=== PATIENT | female | born 2000 | race Caucasian/White ===

== ENCOUNTER 2019-05-09 19:54 | Emergency (ER) | payer BC ==
[~2019-05-09] VITALS: Ht 170.2 cm; Wt 59.0 kg
[2019-05-09 20:05] VITALS: BP 123/82
--- NOTE | 2019-05-09 20:05 | NUR ---
ED Nurse Note: Pt arrived ED from home, c/o Flu like symptom on and off for a week. Pt is A/O X 4. Vital signs stable at this time, waiting for orders.
--- NOTE | 2019-05-09 20:10 | Emergency Room Report ---
History of Present Illness General Chief Complaint: Flu Like Symptoms Source: Patient Present Illness HPI 19-year-old female with no significant past medical history here complaining of 3 weeks of cough and congestion. Patient reports that her symptoms started with sore throat and now she has green mucus and a yellow phlegm. Denies fever and chills, shortness of breath, wheezing, abdominal pain nausea vomiting. Patient reports that she recently moved to [place] and was currently in school. Has been taking qiaj-bng-rjhhujr cough syrups with minimal relief. Denies chest pain, palpitation, shortness of breath, and other associated symptoms. Patient is not a tobacco smoker Allergies: Coded Allergies: No Known Allergies (Unverified , 05/09/19) Patient History Past Medical History: see triage record Past Surgical History: unable to obtain Pertinent Family History: none Last Menstrual Period: 05/02/19 Now: No : 0 Para: 0 Immunizations: UTD Reviewed Nursing Documentation: PMH: Agreed; PSxH: Agreed Nursing Documentation-PMH Past Medical History: No Stated History Review of Systems All Other Systems: negative except mentioned in HPI Physical Exam Vital Signs Date Time Temp Pulse Resp B/P (MAP) Pulse Ox O2 Delivery O2 Flow Rate FiO2 05/09/19 19:56 97.3 72 18 121/81 (94) 100 Room Air Sp02 EP Interpretation: reviewed, normal General Appearance: normal inspection, well appearing, no apparent distress Head: normocephalic, atraumatic Eyes: bilateral eye normal inspection, bilateral eye PERRL ENT: hearing grossly normal, normal pharynx, no angioedema, other - Bilateral maxillary sinuses tender to palpation Neck: normal inspection, full range of motion, supple Respiratory: normal inspection, chest non-tender, lungs clear, no rhonchi, no wheezing Cardiovascular #1: normal inspection, normal peripheral pulses, regular rate, rhythm, no murmur Gastrointestinal: normal inspection, soft Rectal: deferred Genitourinary: no CVA tenderness Musculoskeletal: normal inspection, back normal Neurologic: normal inspection, alert, oriented x3 Psychiatric: normal inspection, judgement/insight normal Skin: normal inspection, normal color, no rash, warm/dry, palpation normal Lymphatic: normal inspection, no adenopathy Medical Decision Making PA Attestation All my diagnosis and treatment plans were reviewed ad discussed with my supervising physician Dr. Boston Diagnostic Impression: Primary Impression: Sinusitis ER Course 19-year-old female with no significant past medical history here complaining of 3 weeks of cough and congestion. Patient reports that her symptoms started with sore throat and now she has green mucus and a yellow phlegm. Denies fever and chills, shortness of breath, wheezing, abdominal pain nausea vomiting. Patient reports that she recently moved to [place] and was currently in school. Has been taking iyhy-ace-zmfurku cough syrups with minimal relief. Denies chest pain, palpitation, shortness of breath, and other associated symptoms. Patient is not a tobacco smoker Ddx considered but are not limited to: strep pharyngitis, URI, tonsilitis, peritonsillar absacess, influneza, sinusitis Vital signs: are WNL, pt. is afebrile H&PE are most consistent with: Sinusitis ORDERS: Augmentin, Flonase, Phenergan ED INTERVENTIONS: None required at this time. DISCHARGE: At this time pt. is stable for d/c to home. Will provide printed patient care instructions, and any necessary prescriptions. Care plan and follow up instructions have been discussed with the patient prior to discharge. Last Vital Signs Date Time Temp Pulse Resp B/P (MAP) Pulse Ox O2 Delivery O2 Flow Rate FiO2 05/09/19 19:56 97.3 72 18 121/81 (94) 100 Room Air Disposition: HOME, SELF-CARE Condition: Stable Scripts Promethazine Hcl (PROMETHAZINE HCL*) 6.25 Mg/5 Ml Syrup 5 ML ORAL Q6H, #120 ML 0 Refills Prov: Wesley Fuentes 05/09/19 Fluticasone Propionate (Flonase Allergy Relief) 9.9 Ml [place].susp 2 PUFFS NS BID, #9.9 ML Prov: Wesley Fuentes 05/09/19 Amoxicillin/Potassium Clav 875-125* (AUGMENTIN 875-125 TABLET*) 1 Each Tablet 1 TAB ORAL TWICE A DAY for 10 Days, #20 TAB Prov: Wesley Fuentes 05/09/19 Patient Instructions: Sinusitis, Adult, [id number] Wesley Fuentes May 09, 2019 20:10
[2019-05-09] MEDS ORDERED: AUGMENTIN 875-1 EAC1 ORAL (20:13)
[2019-05-09] MEDS ORDERED: PROMETHAZI6.25 MG/1 ORAL (20:13)
[2019-05-09] MEDS ORDERED: FLONASE ALLERG9.9 ML NS (20:13)
[2019-05-09 20:26] VITALS: BP 123/82
--- NOTE | 2019-05-09 20:26 | NUR ---
ER DISCHARGE NOTE: Patient is cleared to be discharged per Dr. Choe. Pt is aox4 on room air with stable vital signs. Pt was given dc and prescription instructions and was able to verbalize understanding. Pt's ID band removed. Pt is able to ambulate with steady gait and took all belongings.
== END 2019-05-09 20:26 | disposition home or self-care (01) ==
LOC: EMR 20:15
DX: J32.9 Chronic sinusitis, unspecified (principal)
CPT/HCPCS: 99282

== ENCOUNTER 2019-05-20 14:51 | Emergency (ER) | payer BC ==
[~2019-05-20] VITALS: Ht 170.2 cm; Wt 59.0 kg
[~2019-05-20 14:51] MED LIST: AUGMENTIN 875-1 EAC1 ORAL; FLONASE ALLERG9.9 ML NS; PROMETHAZI6.25 MG/1 ORAL
[2019-05-20] MEDS ORDERED: NKM (14:59)
--- NOTE | 2019-05-20 15:05 | NUR ---
ED Nurse Note: Pt started having all-over body rash since yesterday, suspects to be "bug bite". No change in food or skin care product. AOx4, VSS. Will cont to monitor.
[2019-05-20 15:06] VITALS: BP 129/75
--- NOTE | 2019-05-20 15:12 | Emergency Room Report ---
History of Present Illness General Chief Complaint: Skin Rash/Abscess Source: Patient Present Illness HPI 19-year-old female with no significant past medical history here complaining of generalized pruritic rash all over her body as well as her face. Patient was on amoxicillin a week ago and reports as soon as she finished taking it she started breaking rash all over. Denies pain, pain radiation, fever and chills, nausea vomiting. Denies anaphylaxis, shortness of breath, chest pain. Patient has not taken any medication for her symptoms. Denies exposure to any new allergens or intake of any new food. Allergies: Coded Allergies: No Known Allergies (Unverified , 05/09/19) Patient History Past Medical History: see triage record Past Surgical History: unable to obtain Pertinent Family History: none Last Menstrual Period: 05/04/19 Now: No Immunizations: UTD Reviewed Nursing Documentation: PMH: Agreed; PSxH: Agreed Nursing Documentation-PMH Past Medical History: No Stated History Review of Systems All Other Systems: negative except mentioned in HPI Physical Exam Vital Signs Date Time Temp Pulse Resp B/P (MAP) Pulse Ox O2 Delivery O2 Flow Rate FiO2 05/20/19 14:57 98.1 83 18 130/74 (92) 99 Room Air Sp02 EP Interpretation: reviewed, normal General Appearance: normal inspection, well appearing, no apparent distress Head: normocephalic, atraumatic Eyes: bilateral eye normal inspection, bilateral eye PERRL ENT: normal ENT inspection, hearing grossly normal, normal pharynx, no angioedema Neck: normal inspection, full range of motion, supple, no bony tend Respiratory: normal inspection, chest non-tender, lungs clear, no rhonchi, no wheezing Cardiovascular #1: normal inspection, normal peripheral pulses, regular rate, rhythm, no edema, no murmur Gastrointestinal: normal inspection, non tender, soft, no mass Rectal: deferred Genitourinary: no CVA tenderness Musculoskeletal: normal inspection, back normal, digits/nails normal Neurologic: normal inspection, alert, oriented x3, responsive Psychiatric: normal inspection, judgement/insight normal Skin: rash - uritacaria on arms, legs, face, torso Lymphatic: normal inspection, no adenopathy Medical Decision Making Diagnostic Impression: Primary Impression: Allergic urticaria ER Course 19-year-old female with no significant past medical history here complaining of generalized pruritic rash all over her body as well as her face. Patient was on amoxicillin a week ago and reports as soon as she finished taking it she started breaking rash all over. Denies pain, pain radiation, fever and chills, nausea vomiting. Denies anaphylaxis, shortness of breath, chest pain. Patient has not taken any medication for her symptoms. Denies exposure to any new allergens or intake of any new food. Ddx considered but are not limited to: Eczema, scabies, lice, allergic ureter cardia Vital signs: are WNL, pt. is afebrile H&PE are most consistent with: Allergic urticaria secondary to penicillin ORDERS: Prednisone, dexamethasone, Benadryl, hydrocortisone cream ED INTERVENTIONS: Dexamethasone DISCHARGE: At this time pt. is stable for d/c to home. Will provide printed patient care instructions, and any necessary prescriptions. Care plan and follow up instructions have been discussed with the patient prior to discharge. Avoid exposure to new allergens, drink a lot of fluids, follow with a primary care provider if anaphylaxis return to the emergency room Last Vital Signs Date Time Temp Pulse Resp B/P (MAP) Pulse Ox O2 Delivery O2 Flow Rate FiO2 05/20/19 15:06 98.1 85 20 129/75 99 Room Air Disposition: HOME, SELF-CARE Condition: Stable Scripts Hydrocortisone/Aloe Vera 1%* (HYDROCORTISONE-ALOE 1% CREAM*) Y Cr 1 APPLIC TOPIC Q6H PRN for Itching, #30 GM Prov: Wesley Fuentes 05/20/19 Diphenhydramine HCl (Benadryl) 25 Mg Capsule 25 MG PO TID, #30 CAP Prov: Wesley Fuentes 05/20/19 Prednisone (Prednisone) 20 Mg Tablet 20 MG PO BID for 5 Days, #10 TAB Prov: Wesley Fuentes 05/20/19 Patient Instructions: Allergies, [id number] Additional Instructions: Take medication as directed follow-up with your primary care provider if anaphylaxis return to the emergency room. Wesley Fuentes May 20, 2019 15:12
[2019-05-20] MEDS ORDERED: BENADRYL25 M3 PO (15:13)
[2019-05-20] MEDS ORDERED: PREDNISONE20 M1 PO (15:13)
[2019-05-20] MEDS ORDERED: Dexamethasone 20mg/5ml IM ONE (15:15)
[2019-05-20] MEDS ORDERED: HYDROCORTISONE-30 GM TOPIC (15:18)
[2019-05-20 15:27] VITALS: BP 129/75
--- NOTE | 2019-05-20 15:27 | NUR ---
ER DISCHARGE NOTE: Patient is cleared to be discharged per ERMD, pt is aox4, on room air, with stable vital signs. pt was given dc and prescription instructions, pt was able to verbalize understanding, pt id band removed. pt is able to ambulate with steady gait. pt took all belongings.
== END 2019-05-20 15:27 | disposition home or self-care (01) ==
LOC: EMR 15:20
DX: L50.0 Allergic urticaria (principal)
CPT/HCPCS: 96372; 99283; J1100